=== PATIENT | female | born 1980 | race Caucasian/White ===

== ENCOUNTER 2024-05-21 08:26 | Day surgery (SDC) | payer BC, SELFPAY ==
[2024-05-21] VITALS (8 sets, daily range): BP systolic 80–114; BP diastolic 51–82; PULSE 81–94; RESP 14–22; TEMP 36.2–36.4; O2SAT 99–100; BMI 34.0
--- NOTE | 2024-05-21 | IMM_PTH ---
PATIENT: LYSSA ORTEGA LOC: [facility] [place][id number] AGE/SX: 44/F ROOM: RE05/21/[address]: Dr. Gabriel Iglesias MD : 1980 BED: DIS: 05/21/2024 SPEC #: [id number] RECD: 05/26/24 14:01 STATUS: KAROLINA REQ #: [id number] SUE: 05/21/24 00:[address]: Gabriel Iglesias DEPT: IMMUNOHISTOCHEMISTRY RECD BY: Mahendra Stein ENTERED: 05/26/24 14:05 SP TYPE: IMMUNO OTHR DR: Dr. Amish Barnes MD Tissues: B - Skin of buttock, NOS A - Skin of leg, NOS Procedures: CD31 (initial) CD31 (add) CD34 (add) KI-67 (add) FACTOR VIII (add) MELAN-A (add) S-100 (add) CD34 (initial) PHYSICIAN & INSTITUTION [place] [id number] SPECIMEN INFORMATION: Tissue Source: A- Biopsy of left thigh, B- Biopsy of left gluteal region Clinical Info: Dermatofibroma of buttock, pigmented skin lesion Specimen Number: [id number], B CPT code: 57956r9,19668s7 METHODOLOGY: Deparaffinized sections of prefer/formalin-fixed tissue or PAP/DQ stained slides are incubated with monoclonal/polyclonal antibodies/oligonucleotide probes. Localization is made via biotin free immunoperoxidase method. Appropriate controls are performed and reacted as expected. Results on target cell population are indicated in the following table: RESULTS: ANTIBODY / CLONE RESULT Block A 2 CD31 (DENISE/70A) negative Factor VIII (R Ag) negative CD34 (QBEnd-10) negative Melan A (A103) negative S-100 (4C4.9) negative Ki-67 (30-9) positive, low Block B 6 CD31 (DENISE/70A) negative Factor VIII (R Ag) negative CD34 (QBEnd-10) negative Ki-67 (30-9) positive, low These tests were developed and their performance characteristics determined by [facility]. They may not have been cleared or approved by the U.S. Food and Drug Administration. The FDA has determined that such clearance or approval is not necessary. The above immunohistochemical/dualISH markers are ordered and reviewed by the Pathologist. INTERPRETATION: A. Left thigh lesion, excision: Cellular hemosiderotic dermatofibroma. B. Left gluteal region, excision: Cellular dermatofibroma. PW/mr 06/10/2024
--- NOTE | 2024-05-21 08:43 | PCM.PRE.AN2 ---
ASA Classification* ASA Classification ASA Classification: 2 Assessment & Plan Anesthesia* Anesthesia Assessment Anesthesia Assessment: Discussed sedation and/or anesthesia options, risks, benefits, and alternatives with patient/parents/legal guardian/POA. Questions invited. The patient/parents/legal guardian/POA seems to understand and agrees to proceed with anesthesia plan. Reviewed the physical assessment, medical history, allergy history and patient home medications list prior to surgery/procedure/anesthetic and documented any changes. Performed airway and anesthesia risk assessments. Anesthesia Type Anesthesia Type: General Anesthesia Focused Assessment* Airway Assessment Mouth opens: >3 cm Mallampati Score: II Focused Labs Anesthesia Preop lab: CBC CHEMISTRY COAG Pre-Assessment Diagnosis/Proposed Procedure Planned Operative Procedure(s): EXCISION THIGH AND GLUTEAL LESIONS Anesthesia History Anesthesia History - field education coordinator: Anesthesia History - field education coordinator Hx Hospitalization No 05/19/24 12:14 Any Problems With Anesthesia Yes: N&V 05/19/24 12:14 Cholinesterase deficiency No 05/19/24 12:14 You/Your Family Experience No 05/19/24 12:14 fever (hyperthermia) with Relationship Recent Exposure to Contagious Disease Does patient have nerve No 05/19/24 12:14 stimulator Patient instructed to have device shut off --Does patient have Pacemaker or ICD? When Was Last Pacemaker Check QUESTION #4 FULL TEXT: You/Your Family Experience fever (hyperthermia) with Anesthesia Last Oral Intake Last Oral intake: Last Oral Intake NPO since Meds taken in AM with sips of water? Meds patient instructed to take am of surgery PONV PONV - field education coordinator: PONV - field education coordinator Female Yes 05/19/24 12:14 HX of Motion Sickness No 05/19/24 12:14 HX of N/V After Surgery Yes 05/19/24 12:14 Non-Smoker Yes 05/19/24 12:14 Duration of Surgery greater No 05/19/24 12:14 than 60 minutes Number of Risk Factors 3 05/19/24 12:14 PONV Score Moderate Risk 05/19/24 12:14 Height & Weight Height & Weight: Anesthesia: Height & Weight Height 5 ft 3 in 05/15/24 08:49 Respiratory Assessment Respiratory Assessment - field education coordinator: Respiratory Tract Infection Hx - field education coordinator Hx Respiratory Tract Infection No 05/19/24 12:14 STOP Sleep Apnea STOP Sleep Apnea - field education coordinator: STOP Sleep Apnea - field education coordinator Hx Hypertension No 05/19/24 12:14 Hx Sleep Apnea No 05/19/24 12:14 CPAP BIPAP Do you snore loudly (louder No 05/19/24 12:14 than talking or can be heard Do you often feel tired/ No 05/19/24 12:14 fatigued/ sleepy during daytime? Has anyone observed you stop No 05/19/24 12:14 breathing during sleep? STOP Results Negative 05/19/24 12:14 QUESTION #5 FULL TEXT : Do you snore loudly (louder than talking or can be heard through closed doors)? Tobacco Use History Tobacco Use History - field education coordinator: Tobacco Use History - field education coordinator Tobacco Use Smoking Status Never smoker 05/19/24 12:14 Hx Tobacco Use No 05/19/24 12:14 Years Smoking Packs Smoked per Day Smoking Cessation Date was within the last 15 years Hx Smoking Cessation Date Hx Smoking Cessation Counseling Hematologic Medial History Hematologic Hx - field education coordinator: Hematologic Medical Hx - admitting officer Hx of Blood Transfusion No 05/19/24 12:14 Hx of Transfusion in last 3 No 05/19/24 12:14 Months Date of Last Transfusion (if within last 3 months) Ever experience any problems No 05/19/24 12:14 with transfusion(s)? Specify any problems Hx of Preganancy in last 3 No 05/19/24 12:14 Months Nurse Filling Out Transfusion VCHRISTIN 05/19/24 12:14 & Questions: Date: 05/19/24 05/19/24 12:14 Time: 12:16 05/19/24 12:14 Patient unable to answer at this time (ie. confused, unrespo /Reproduction History /Reproductive History - field education coordinator: /Reproductive Hx- field education coordinator Hx Now No 05/19/24 12:14 Gestational Age (in weeks): EDC: Hx Hx Para Hx Section SAB No 05/19/24 12:14 Active Medications Active Medications: Current Medications Generic Name Dose Route Start Last Admin Trade Name Freq PRN Reason Stop Dose Admin Cefazolin Sodium 2 gm/ N/A 20 mls @ 400 mls/hr 05/21/24 09:55 IV 05/21/24 09:57 PREOP ONE Sodium Chloride 1,000 mls @ 15 mls/hr 05/21/24 08:45 IV 05/26/24 22:04 .Q48H [facility] Protocol PFSH Medical History Wears glasses Wears contact lenses Anxiety Fatty liver Skin cancer Diabetes Cancer Home Medications ?Medication ?Instructions ?Recorded ?Last Taken ?Type fluoxetine 40 mg capsule 40 mg PO QDAY 05/15/24 Unknown History metformin 1,000 mg tablet 1,000 mg PO BID 05/15/24 Unknown History tirzepatide 15 mg/0.5 mL 15 mg subcut QWEEK 05/15/24 05/09/24 History subcutaneous pen injector (Mounjaro) cetirizine 10 mg capsule (All Day 10 mg PO DAILY PRN allergy symptoms 05/19/24 Unknown History Allergy (cetirizine)) turmeric 400 mg capsule 400 mg PO 05/19/24 Unknown History Allergy/AdvReac Type Severity Reaction Status Date / Time No Known Allergies Allergy Verified 05/19/24 12:03 Family History Other Anxiety Breast cancer Diabetes Skin cancer Surgical History Hx of laparoscopy History of back surgery Hx of section History of cystoscopy Angiosarcoma Kidney stones Social History Smoking Status: Never smoker alcohol intake: never substance use type: does not use Review of Systems (Anesthesia) ROS Narrative System reviewed and no additional complaints, except as documented.
--- NOTE | 2024-05-21 08:53 | PCM.HP.STD ---
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 Patient reports that this has been there for months and has been growing. Dr. Suarez from [facility] dermatology excised part of the mass for biopsy, but referred her to me for resection of the residual tissue. Patient reports that it is painful and uncomfortable at times when she sits on it. She is concerned about this mass given her history of soft tissue tumors. She also has a spot on her lateral thigh that is dark and dimpled/depressed. This lesion was biopsied 10 years ago per patient report at an outside hospital and came back benign. She would like this examined as well. Patient is not a smoker. Patiently lost 65 pounds on Mounjaro (weekly injections for her diabetes, type II). She does not have a personal or family history of blood clots Her mother had breast cancer. The patient is up-to-date on her mammography and had one within a year. Caprini score is 4 for BMI Current Encounter (DATE OF SURGERY H&P UPDATE): I saw and examined the patient this morning in pre-operative holding. We discussed risks and benefits of today's surgery and they would like to proceed. NO CHANGE in health history since last seen and evaluated. Ready to proceed with surgery. [facility] Medical History Wears glasses Wears contact lenses Anxiety Fatty liver Skin cancer Diabetes Cancer Home Medications ?Medication ?Instructions ?Recorded ?Last Taken ?Type fluoxetine 40 mg capsule 40 mg PO QDAY 05/15/24 Unknown History metformin 1,000 mg tablet 1,000 mg PO BID 05/15/24 Unknown History tirzepatide 15 mg/0.5 mL 15 mg subcut QWEEK 05/15/24 05/09/24 History subcutaneous pen injector (Mounjaro) cetirizine 10 mg capsule (All Day 10 mg PO DAILY PRN allergy symptoms 05/19/24 Unknown History Allergy (cetirizine)) turmeric 400 mg capsule 400 mg PO 05/19/24 Unknown History Allergy/AdvReac Type Severity Reaction Status Date / Time No Known Allergies Allergy Verified 05/21/24 08:54 Family History Other Anxiety Breast cancer Diabetes Skin cancer Surgical History Hx of laparoscopy History of back surgery Hx of section History of cystoscopy Angiosarcoma Kidney stones Social History Smoking Status: Never smoker alcohol intake: never substance use type: does not use Physical Exam Narrative Female certified medical asst was present for my exam There is a 4 x 3 cm scar in the left buttock that appears fixed to the underlying subcutaneous tissue. There is also a dark 1 x 1 cm lesion on the left lateral thigh with uniform color and regular borders but the lesion is depressed/cratered. Assessment & Plan Assessment/Plan (1) Dermatofibroma of buttock: (2) Pigmented skin lesion: PLAN: Plan Both of these masses warrant an excision. Unclear what the pigmented skin lesion is, so should be removed and sent to pathology. There are dermatofibroma is causing her pain, she is an indication for excision in and of itself. I talked to her extensively about these masses, and discussed with Dr. Suarez as well. Pathology recommended conservative reexcision to ensure complete removal. I think this is appropriate as the margins were positive and, while these lesions are benign, they have a high recurrence rate and can rarely metastasize. I talked the patient extensively about the risks, benefits, and alternatives of removal of this. She would like to proceed. I talked the patient extensively about the risks of surgery, including bleeding, infection, damage to surrounding structures, surgical site dehiscence and wound formation, need for wound care, need for repeat operations, failure to obtain the desired result, DVT/PE, and the risks of anesthesia including . The benefits and alternatives of this surgery were also discussed. All of their questions were answered, and they agreed to proceed with surgery. Plan for sedation and local anesthesia right lateral decubitus position for excision of left thigh pigmented lesion and left gluteal dermatofibroma. INTERVAL H&P PLAN, DATE OF SURGERY: We will proceed with surgery today.
[2024-05-21 09:00] LABS: Internal QC Validated? YES +Cl - CLEAR BKGD; Pregnancy, Urine Negative Negative
[2024-05-21] MEDS: 0.9% Normal Saline (1000mL) 1,000 ML 15 ML IV (09:08)
[2024-05-21 09:31] LABS: Bedside Glucose 101 mg/dL (74-106)
--- NOTE | 2024-05-21 09:42 | OP.PCM_ITS ---
Operative Report (Standard) Operative Information Date of Procedure: 05/21/24 Pre-Operative Diagnosis: 1) Left buttock cellular dermatofibroma 2) Left thigh pigmented lesion Post-Operative Diagnosis: 1) Left buttock cellular dermatofibroma 2) Left thigh pigmented lesion Surgery/Procedure Performed: 1) Excision of left thigh pigmented lesion, 4.5 x 2.5 cm, CPT: 53206 2) Excisional biopsy of the left thigh lesion, 1 x 4 cm, CPT: 26157 3) Intermediate closure of wounds, 8.5 cm, CPT: 38994 endoscopy technician: Yes Granite Worker: Deon Moreno Tasks completed by certified dental assistant: Retracting Type of Anesthesia: MAC/Supplemental (20 cc of a 50/50 mixture of 0.25% marcaine with 1:200,000 epi and 1% lidocaine ) RN Documented Start/Stop Times: Operation Date: 05/21/24 09:55 Case Time Into Pre-Op 05/21/24 08:36 Anesthesia Start 05/21/24 09:39 Into Room 05/21/24 09:39 Procedure Start 05/21/24 09:58 Procedure End 05/21/24 10:19 Anesthesia End 05/21/24 10:29 Out of Room 05/21/24 10:29 Into Recovery 05/21/24 10:30 Procedure Start Time: 09:58 Procedure Stop Time: 10:19 Select all DRAINS/GRAFTS/IMPLANTS that apply: None Estimated Blood Loss: Minimal Specimen collected: Yes Description of specimen(s) removed: Dermatofibroma left buttock, looking for clear margins, and left thigh biopsy specimen . Both lesions/masses were marked with a silk stitch for short superior, long lateral, and were sent to pathology. Description of surgery: INDICATIONS: Patient has two lesions, one on buttock and one on thigh (both left side). They warrant excision. We discussed risks of infection, bleeding, damage to surrounding structures, return of the mass and need for repeat surgeries, healing problems/dehiscence of the wound and need for wound care, and risks from anesthesia. OPERATIVE DETAILS: The patient was correctly identified in holding, and I marked them (the two locations were confirmed, the patient agreed with the site markings). They were taken back to the procedure room where they were administered sedation and local for anesthesia and placed in the right lateral decubitus positioning. Once appropriate level of anesthesia was obtained, the site was prepped and draped in sterile fashion. A 15 blade scalpel was used to excise an ellipse around the buttock dermatofibroma and remove it completely full thickness to subcutaneous tissue, and dissection was carried out with tenotomy scissors around the mass/lesion and Bovie electrocautery. It was in the subcutaneous and skin layer deep to the skin (consistent with dermatofibroma). Dissection was carried out with tenotomy scissors around the mass and it was removed in in one piece. Hemostasis was obtained with Bovie electrocautery. The wound was irrigated with copious amounts of normal saline. It measured 4.5 x 2.5 centimeters. The mass was sent to pathology. The left thigh lesion was then completely excised in an ellipse with a 15 blade scalpel to subcutaneous tissue full thickness for an excisional biopsy and the wounds were irrigated. Both lesions/masses were marked with a silk stitch for short superior, long lateral, and were sent to pathology. Attention was then turned to intermediate closure of the wounds, which was 8.5 centimeters long. Deep sutures were placed with 3-0 PDS followed by 3-0 mono cryl deep dermal and then a running subcuticular suture 3-0 monocryl. Prineo was applied. The patient tolerated the procedure well and was taken to pacu in stable condition. POST-OPERATIVE PLAN: [ ] Surgical Findings: Lesions clinically completely excised Complications Complications: No Admit VTE Documentation VTE Mechan Device Prophylaxis: SCD's
[2024-05-21] MEDS: Cefazolin 2 GM in Syringe IV (09:47)
--- NOTE | 2024-05-21 09:55 | LES_PTH ---
PATIENT: LYSSA ORTEGA [place] [facility] [place][id number] AGE/SX: 44/F ROOM: RE05/21/[address]: Dr. Gabriel Iglesias MD : 1980 BED: DIS: 05/21/2024 SPEC #: [id number] RECD: 05/21/24 10:40 STATUS: KAROLINA AUGUSTO #: [id number] SUE: 05/21/24 09:[address]: Gabriel Iglesias DEPT: SURGICAL PATHOLOGY RECD BY: Krystina Valladares ENTERED: 05/21/24 11:25 SP TYPE: Lesion OTHR DR: Dr. Amish Barnes MD Tissues: A - Skin of leg, NOS B - Buttock, NOS Procedures: Surgery Specimen Level IV HEADER OPERATION: Excision thigh and gluteal lesions PRE-OP DIAGNOSIS: Dermatofibroma of buttock, pigmented skin lesion TISSUE SUBMITTED: A- Biopsy of left thigh lesion *short stitch- superior, long stitch- lateral, B- Biopsy left gluteal region * short suture - superior, long suture- lateral* MICROSCOPIC DIAGNOSIS A. Left thigh lesion: Cellular hemosiderotic dermatofibroma, incompletely excised. See comment. B. Left gluteal region, skin lesion: Cellular dermatofibroma, excised in the planes examined. See comment. PW/mr 05/26/2024 COMMENT A. The skin lesion shows a cellular proliferation similar to the dermatofibroma present in specimen B, but is heavily pigmented with numerous hemosiderin-laden macrophages. Immunohistochemistry ([id number]) supports the above diagnosis. Iron stain supports the above diagnosis with appropriate control material. This lesion is present at one of the lateral inked peripheral margins and re-excision is recommended to help prevent a recurrence. B. Previous pathology report of biopsy is obtained from providers office and is reviewed. The current specimen shows cellular dermatofibroma which is now widely excised with negative margins in all of the planes examined. Cicatrix is also noted likely from previous excision. Immunohistochemistry ([id number]) supports the above diagnosis. This case has been seen in consultation with [facility]. Please see outside report for details and additional immunohistochemistry findings. Case has been reviewed in consultation with Dr. Kellogg who concurs with the above diagnosis. IDC:[id number] MICROSCOPIC DESCRIPTION Slides are reviewed. GROSS DESCRIPTION A. Received in fixative is one container labeled with the patient's name and designated Left thigh lesion. The specimen consists of a starr-white skin ellipse measuring 2.5 x 1.0cm and up to 1.5cm in thickness. The specimen is oriented as follows: short stitch- superior, long stitch- lateral. The specimen is inked as follows: superior tip- yellow, inferior tip- green, lateral margin -black, medial margin -blue. The specimen is serially sectioned and submitted entirely in two cassettes. Cassette 1 contains the tips of the skin ellipse. 05/21/2024 B. Received in fixative is one container labeled with the patient's name and designated Left gluteal region. The specimen consists of a piece of starr-white skin ellipse measuring 4.5 x 3.0cm and up to 1.5cm in thickness. The specimen is oriented as follows: short stitch -superior, long stitch - lateral. The specimen is inked as follows: superior tip-yellow, inferior tip- green, lateral margin - blue, medial margin- black, deep margin -red. The entire specimen is submitted in ten cassettes. Cassette 1 contains the superior and inferior tips, cassette 2 contains the closest superior margin and cassette 10 contains the most inferior margin. Sections will be submitted after additional fixation. 05/22/2024 TC:5 CPT:41575u2
[2024-05-21] MEDS: Bupiv/Epi 0.25% 30 ML Vial (10:12)
[2024-05-21] MEDS: Lidocaine 1% /Epi 1:100 (20ml) 20 ML Vial (10:13)
--- NOTE | 2024-05-21 10:42 | PCM.POST.ANE ---
Anesthesia: Postop Eval I Current Vital Signs Temperature: 97.5 F Pulse Rate: 94 Blood Pressure: 99/62 Respiratory Rate: 22 Pulse Ox: 100 Oxygen Delivery Method: Room Air Assessment Airway patent: Yes Spontaneous unlabored respirations: Yes Mental status: Awake and Calm nausea: No Vomiting: No Anesthesia Complication: No Fluid Hydration Crystalloid volume administer (ml): 500 Total IV fluid infused: 500 Progress Note Anesthesia document: Postop Eval 1 completed: Yes
--- NOTE | 2024-05-21 12:59 | POSTOPAN2_ITS ---
Anesthesia Postop Eval I Sum Postop Eval Completion status Anesthesia document: Postop Eval 1 completed: Yes Anesthesia Postop Eval I Summary Anesthesia Postop Eval I Summary: Anesthesia Postop Eval I: Assessment Summary Airway patent Yes 05/21/24 10:43 CLINICAL [email or web address] Spontaneous unlabored Yes 05/21/24 10:43 CLINICAL [email or web address] respirations Mental status Awake,Calm 05/21/24 10:43 CLINICAL [email or web address] nausea No 05/21/24 10:43 CLINICAL [email or web address].[email or web address] Vomiting No 05/21/24 10:43 CLINICAL [email or web address].[email or web address] Anesthesia Postop Eval I: Fluid Summary Crystalloid volume administer 500 05/21/24 10:43 CLINICAL [email or web address] (ml) Colloids volume administered ( ml) Blood Product volume administered (ml) Total IV fluid infused 500 05/21/24 10:43 CLINICAL [email or web address].[email or web address] Anesthesia Postop Eval I: Summary Notes Anesthesia Complication No 05/21/24 10:43 CLINICAL [email or web address].[email or web address] Anesthesia Complication Comment: Post-operative progress note Anesthesia: Postop Eval II Evaluation Mental status: Awake Pain Level: 0 nausea: No Vomiting: No
--- NOTE | 2024-05-21 12:59 | PCM.POSTANE2 ---
Anesthesia Postop Eval I Sum Postop Eval Completion status Anesthesia document: Postop Eval 1 completed: Yes Anesthesia Postop Eval I Summary Anesthesia Postop Eval I Summary: Anesthesia Postop Eval I: Assessment Summary Airway patent Yes 05/21/24 10:43 PLANIMETER [email or web address] Spontaneous unlabored Yes 05/21/24 10:43 PLANIMETER OPERATOR.[email or web address] respirations Mental status Awake,Calm 05/21/24 10:43 PLANIMETER OPERATOR.[email or web address] nausea No 05/21/24 10:43 PLANIMETER OPERATOR.[email or web address] Vomiting No 05/21/24 10:43 PLANIMETER OPERATOR.[email or web address] Anesthesia Postop Eval I: Fluid Summary Crystalloid volume administer 500 05/21/24 10:43 PLANIMETER OPERATOR.[email or web address] (ml) Colloids volume administered ( ml) Blood Product volume administered (ml) Total IV fluid infused 500 05/21/24 10:43 PLANIMETER OPERATOR.[email or web address] Anesthesia Postop Eval I: Summary Notes Anesthesia Complication No 05/21/24 10:43 PLANIMETER OPERATOR.[email or web address] Anesthesia Complication Comment: Post-operative progress note Anesthesia: Postop Eval II Evaluation Mental status: Awake Pain Level: 0 nausea: No Vomiting: No
== END 2024-05-21 12:13 | disposition home or self-care (01) ==
LOC: SDC 08:26 → AC 08:28
PROVIDERS: Anesthesiology; PCP Family Medicine; Referring Provider Surgery Plastic and Reconstructive Surgery; Visit Provider Surgery Plastic and Reconstructive Surgery
PROC: (CPT 12034; principal; 2024-05-21 09:45)
DX: D23.5 Other benign neoplasm of skin of trunk (principal); E11.9 Type 2 diabetes mellitus without complications; Z80.8 Family history of malignant neoplasm of other organs or systems; Z79.84 Long term (current) use of oral hypoglycemic drugs; Z80.3 Family history of malignant neoplasm of breast; Z85.828 Personal history of other malignant neoplasm of skin
CPT/HCPCS: 12034; 11406; 00400; 81025; 82962; 88305; 88341; 88342; J2405

== ENCOUNTER 2024-06-18 12:29 | Day surgery (SDC) | payer BC, SELFPAY ==
[2024-06-18] VITALS (9 sets, daily range): BP systolic 91–101; BP diastolic 64–82; PULSE 74–90; RESP 16–18; TEMP 36.3–37; O2SAT 96–100; BMI 34.3
--- NOTE | 2024-06-18 12:36 | PRE.ANES_ITS ---
ASA Classification* ASA Classification ASA Classification: 2 Assessment & Plan Anesthesia* Anesthesia Assessment Anesthesia Assessment: Discussed sedation and/or anesthesia options, risks, benefits, and alternatives with patient/parents/legal guardian/POA. Questions invited. The patient/parents/legal guardian/POA seems to understand and agrees to proceed with anesthesia plan. Reviewed the physical assessment, medical history, allergy history and patient home medications list prior to surgery/procedure/anesthetic and documented any changes. Performed airway and anesthesia risk assessments. Anesthesia Type Anesthesia Type: MAC Anesthesia Focused Assessment* Airway Assessment Mouth opens: >3 cm Mallampati Score: II Focused Labs Anesthesia Preop lab: CBC CHEMISTRY POC Glucose 101 mg/dL (74-106) 05/21/24 08:53 05/21/24 COAG Urine Test Negative Negative 05/21/24 08:40 05/21/24 Pre-Assessment Diagnosis/Proposed Procedure Planned Operative Procedure(s): EXCISION OF LEFT THIGH DERMOFIBROMA Anesthesia History Anesthesia History - painter and grader cork: Anesthesia History - painter and grader cork Hx Hospitalization No 06/16/24 15:04 Any Problems With Anesthesia Yes: N&V/STATES DID WELL 06/16/24 15:04 WITH SURGERY 05/21/24 Cholinesterase deficiency No 06/16/24 15:04 You/Your Family Experience No 06/16/24 15:04 fever (hyperthermia) with Relationship Recent Exposure to Contagious No 05/21/24 08:57 Disease Does patient have nerve No 06/16/24 15:04 stimulator Patient instructed to have device shut off --Does patient have Pacemaker or ICD? When Was Last Pacemaker Check QUESTION #4 FULL TEXT: You/Your Family Experience fever (hyperthermia) with Anesthesia Last Oral Intake Last Oral intake: Last Oral Intake NPO since Meds taken in AM with sips of water? Meds patient instructed to take am of surgery PONV PONV - painter and grader cork: PONV - painter and grader cork Female Yes 06/16/24 15:04 HX of Motion Sickness No 06/16/24 15:04 HX of N/V After Surgery Yes 06/16/24 15:04 Non-Smoker Yes 06/16/24 15:04 Duration of Surgery greater No 06/16/24 15:04 than 60 minutes Number of Risk Factors 3 06/16/24 15:04 PONV Score Moderate Risk 06/16/24 15:04 Height & Weight Height & Weight: Anesthesia: Height & Weight Height 5 ft 3 in 05/30/24 08:23 Respiratory Assessment Respiratory Assessment - painter and grader cork: Respiratory Tract Infection Hx - painter and grader cork Hx Respiratory Tract Infection No 06/16/24 15:04 STOP Sleep Apnea STOP Sleep Apnea - painter and grader cork: STOP Sleep Apnea - painter and grader cork Hx Hypertension No 06/16/24 15:04 Hx Sleep Apnea No 06/16/24 15:04 CPAP BIPAP Do you snore loudly (louder No 06/16/24 15:04 than talking or can be heard Do you often feel tired/ No 06/16/24 15:04 fatigued/ sleepy during daytime? Has anyone observed you stop No 06/16/24 15:04 breathing during sleep? STOP Results Negative 06/16/24 15:04 QUESTION #5 FULL TEXT : Do you snore loudly (louder than talking or can be heard through closed doors)? Tobacco Use History Tobacco Use History - painter and grader cork: Tobacco Use History - painter and grader cork Tobacco Use Smoking Status Never smoker 06/16/24 15:04 Hx Tobacco Use No 06/16/24 15:04 Years Smoking Packs Smoked per Day Smoking Cessation Date was within the last 15 years Hx Smoking Cessation Date Hx Smoking Cessation Counseling Hematologic Medial History Hematologic Hx - painter and grader cork: Hematologic Medical Hx - crop and soil scientist Hx of Blood Transfusion No 06/16/24 15:04 Hx of Transfusion in last 3 No 06/16/24 15:04 Months Date of Last Transfusion (if within last 3 months) Ever experience any problems No 06/16/24 15:04 with transfusion(s)? Specify any problems Hx of Preganancy in last 3 No 06/16/24 15:04 Months Nurse Filling Out Transfusion DSCHRIBER 06/16/24 15:04 & Questions: Date: 06/16/24 06/16/24 15:04 Time: 15:05 06/16/24 15:04 Patient unable to answer at this time (ie. confused, unrespo /Reproduction History /Reproductive History - painter and grader cork: /Reproductive Hx- painter and grader cork Hx Now Gestational Age (in weeks): EDC: Hx Hx Para Hx Section SAB No 06/16/24 15:04 Active Medications Active Medications: Current Medications Generic Name Dose Route Start Last Admin Trade Name Freq PRN Reason Stop Dose Admin Cefazolin Sodium 2 gm/ N/A 20 mls @ 400 mls/hr 06/18/24 12:55 IV 06/18/24 12:57 PREOP [facility] Medical History Wears glasses Wears contact lenses Anxiety Fatty liver Dermatofibroma of buttock Skin cancer Diabetes Cancer Home Medications ?Medication ?Instructions ?Recorded ?Last Taken ?Type fluoxetine 40 mg capsule 40 mg PO QDAY 05/15/2405/19 History tirzepatide 15 mg/0.5 mL 15 mg subcut FR 05/15/2411/28 History subcutaneous pen injector (Mounjaro) cetirizine 10 mg capsule (All Day 10 mg PO DAILY PRN a llergy symptoms 05/19/24 05/19/24 History Allergy (cetirizine)) turmeric 400 mg capsule 400 mg PO DAILY 05/19/24 History Allergy/AdvReac Type Severity Reaction Status Date / Time No Known Allergies Allergy Verified 06/16/24 15:01 Family History Other Anxiety Breast cancer Diabetes Skin cancer Surgical History History of excision of lesion Hx of laparoscopy History of back surgery Hx of section History of cystoscopy Angiosarcoma Kidney stones Social History Smoking Status: Never smoker alcohol intake: never substance use type: does not use Review of Systems (Anesthesia) ROS Narrative System reviewed and no additional complaints, except as documented.
--- NOTE | 2024-06-18 13:01 | PCM.HP.STD ---
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 Patient reports that this has been there for months and has been growing. Dr. Suarez from [facility] dermatology excised part of the mass for biopsy, but referred her to me for resection of the residual tissue. Patient reports that it is painful and uncomfortable at times when she sits on it. She is concerned about this mass given her history of soft tissue tumors. She also has a spot on her lateral thigh that is dark and dimpled/depressed. This lesion was biopsied 10 years ago per patient report at an outside hospital and came back benign. She would like this examined as well. Patient is not a smoker. Patiently lost 65 pounds on Mounjaro (weekly injections for her diabetes, type II). She does not have a personal or family history of blood clots Her mother had breast cancer. The patient is up-to-date on her mammography and had one within a year. Caprini score is 4 for BMI Current Encounter (DATE OF SURGERY H&P UPDATE): I saw and examined the patient this morning in pre-operative holding. We discussed risks and benefits of today's surgery and they would like to proceed. NO CHANGE in health history since last seen and evaluated. Ready to proceed with surgery. 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 Lesion focally present at the lateral edge of the specimen and recommended reexcision Here for re-excision left thigh dermatofibroma [facility] Medical History Wears glasses Wears contact lenses Anxiety Fatty liver Dermatofibroma of buttock Skin cancer Diabetes Cancer Home Medications ?Medication ?Instructions ?Recorded ?Last Taken ?Type fluoxetine 40 mg capsule 40 mg PO QDAY 05/15/24 06/18/24 History tirzepatide 15 mg/0.5 mL 15 mg subcut FR 05/15/24 06/06/24 History subcutaneous pen injector (Mounjaro) cetirizine 10 mg capsule (All Day 10 mg PO DAILY PRN allergy symptoms 05/19/24 05/19/24 History Allergy (cetirizine)) turmeric 400 mg capsule 400 mg PO DAILY 05/19/24 05/19/24 History Allergy/AdvReac Type Severity Reaction Status Date / Time No Known Allergies Allergy Verified 06/18/24 12:52 Family History Other Anxiety Breast cancer Diabetes Skin cancer Surgical History History of excision of lesion Hx of laparoscopy History of back surgery Hx of section History of cystoscopy Angiosarcoma Kidney stones Social History Smoking Status: Never smoker alcohol intake: never substance use type: does not use Physical Exam Narrative Incisions c/d/i on left buttock and left thigh. No induration or drainage today. I marked the left thigh scar/planned area of incision with the patient and she was in agreement with the site marking Assessment & Plan Assessment/Plan (1) Dermatofibroma of left thigh: PLAN: Per pathology consult, the recommendation was conservative reexcision with clear margins as these occasionally get bigger/recur or even metastasize (rare but possible). I talked to the pathologist on the phone. Marginal control is the plan as it was with a left gluteal dermatofibroma. Plan for reexcision of the left thigh lesion under local and sedation in the operating room. We will send permanent sections. I talked to the patient about the risks, benefits, and alternatives to this procedure and she would like to proceed.
[2024-06-18 13:18] LABS: Internal QC Validated? YES +Cl - CLEAR BKGD; Pregnancy, Urine Negative Negative
[2024-06-18 13:19] LABS: Record Kit Lot#,Urine Preg 856586
[2024-06-18 13:23] LABS: Bedside Glucose 82 mg/dL (74-106)
[2024-06-18] MEDS: Cefazolin 2 GM in Syringe IV (13:50)
[2024-06-18] MEDS: Lidocaine 1% /Epi 1:100 (20ml) 20 ML Vial (14:00)
[2024-06-18] MEDS: Bupiv/Epi 0.25% 30 ML Vial (14:00)
--- NOTE | 2024-06-18 14:00 | MASS_PTH ---
PATIENT: LYSSA ORTEGA [place] [facility] [place][id number] AGE/SX: 44/F ROOM: RE06/18/[address]: Dr. Gabriel Iglesias MD : 1980 BED: DIS: 06/18/2024 SPEC #: [id number] RECD: 06/18/24 14:37 STATUS: KAROLINA REAriel #: [id number] SUE: 06/18/24 14:[address]: Gabriel Iglesias DEPT: SURGICAL PATHOLOGY RECD BY: Joel Vaughn ENTERED: 06/19/24 07:23 SP TYPE: Mass OTHR DR: Dr. Amish Barnes MD Tissues: Thigh, NOS Procedures: Surgery Specimen Level IV HEADER OPERATION: Excision of left thigh dermatofibroma PRE-OP DIAGNOSIS: Dermatofibroma of left thigh TISSUE SUBMITTED: Left thigh mass *short stitch - superior, long stitch - lateral* MICROSCOPIC DIAGNOSIS Left thigh mass, excision: Negative for residual dermatofibroma. Changes consistent with previous biopsy site. See comment. 06/23/2024 COMMENT Please make reference to previous specimen [id number] left thigh lesion with diagnosis of cellular hemosiderotic dermatofibroma, incompletely excised and left gluteal lesion, skin lesion with diagnosis of cellular dermatofibroma, excised in the planes examined. MICROSCOPIC DESCRIPTION Slides are reviewed. GROSS DESCRIPTION Received in fixative is one container labeled with the patient's name and designated Left thigh mass. The specimen consists of a starr-white skin ellipse measuring 5 x 1.2cm and up to 1cm in thickness. The specimen is inked as follows: superior tip- yellow, inferior tip- green, lateral margin- black, medial margin- blue. The specimen is serially sectioned and submitted entirely in five cassettes. Cassette 1 contains the superior and inferior tips. Sections will be submitted after additional fixation. 06/19/2024 TC:5 CPT:91429
--- NOTE | 2024-06-18 14:41 | PCM.POST.ANE ---
Anesthesia: Postop Eval I Current Vital Signs Temperature: 97.7 F Pulse Rate: 80 Blood Pressure: 95/77 Respiratory Rate: 18 Pulse Ox: 100 Assessment Airway patent: Yes Spontaneous unlabored respirations: Yes nausea: No Vomiting: No Anesthesia Complication: No Fluid Hydration Crystalloid volume administer (ml): 100 Total IV fluid infused: 100 Progress Note Anesthesia document: Postop Eval 1 completed: Yes
--- NOTE | 2024-06-18 15:54 | POSTOPAN2_ITS ---
Anesthesia Postop Eval I Sum Postop Eval Completion status Anesthesia document: Postop Eval 1 completed: Yes Anesthesia Postop Eval I Summary Anesthesia Postop Eval I Summary: Anesthesia Postop Eval I: Assessment Summary Airway patent Yes 06/18/24 14:41 PROPERTY MANAGEMENT INTERN.[email or web address] Spontaneous unlabored Yes 06/18/24 14:41 PROPERTY MANAGEMENT INTERN.JGEN respirations Mental status nausea No 06/18/24 14:41 PROPERTY MANAGEMENT INTERN.JGEN Vomiting No 06/18/24 14:41 PROPERTY MANAGEMENT INTERN.JGEN Anesthesia Postop Eval I: Fluid Summary Crystalloid volume administer 100 06/18/24 14:41 PROPERTY MANAGEMENT INTERN.JGEN (ml) Colloids volume administered ( ml) Blood Product volume administered (ml) Total IV fluid infused 100 06/18/24 14:41 PROPERTY MANAGEMENT INTERN.JGEN Anesthesia Postop Eval I: Summary Notes Anesthesia Complication No 06/18/24 14:41 PROPERTY MANAGEMENT INTERN.JGEN Anesthesia Complication Comment: Post-operative progress note Anesthesia: Postop Eval II Evaluation Mental status: Awake Pain Level: 0 nausea: No Vomiting: No
--- NOTE | 2024-06-18 15:54 | PCM.POSTANE2 ---
Anesthesia Postop Eval I Sum Postop Eval Completion status Anesthesia document: Postop Eval 1 completed: Yes Anesthesia Postop Eval I Summary Anesthesia Postop Eval I Summary: Anesthesia Postop Eval I: Assessment Summary Airway patent Yes 06/18/24 14:41 COMPUTER SPECIALIST.[email or web address] Spontaneous unlabored Yes 06/18/24 14:41 COMPUTER SPECIALIST.JGEN respirations Mental status nausea No 06/18/24 14:41 COMPUTER SPECIALIST.JGEN Vomiting No 06/18/24 14:41 COMPUTER SPECIALIST.JGEN Anesthesia Postop Eval I: Fluid Summary Crystalloid volume administer 100 06/18/24 14:41 COMPUTER SPECIALIST.JGEN (ml) Colloids volume administered ( ml) Blood Product volume administered (ml) Total IV fluid infused 100 06/18/24 14:41 COMPUTER SPECIALIST.JGEN Anesthesia Postop Eval I: Summary Notes Anesthesia Complication No 06/18/24 14:41 COMPUTER SPECIALIST.JGEN Anesthesia Complication Comment: Post-operative progress note Anesthesia: Postop Eval II Evaluation Mental status: Awake Pain Level: 0 nausea: No Vomiting: No
--- NOTE | 2024-06-19 13:38 | OP.PCM_ITS ---
Operative Report (Standard) Operative Information Date of Procedure: 06/18/24 Pre-Operative Diagnosis: Left thigh dermatofibroma cellular and hemosiderotic type Post-Operative Diagnosis: Left thigh dermatofibroma cellular and hemosiderotic type Surgery/Procedure Performed: 1) Excision of left thigh dermatofibroma, 4.2 x 1 cm (CPT:03784) 2) Intermediate closure of left thigh wound, 4.2 cm (CPT:60249) raise driller: No Type of Anesthesia: MAC/Supplemental (20 cc of a 50/50 mixture of 1% lidocaine with 1:200,000 epinephrine and 0.25% Marcaine ) RN Documented Start/Stop Times: Operation Date: 06/18/24 14:00 Case Time Into Pre-Op 06/18/24 12:32 Out of Pre-Op 06/18/24 13:43 Anesthesia Start 06/18/24 13:45 Into Room 06/18/24 13:45 Procedure Start 06/18/24 14:02 Procedure End 06/18/24 14:18 Anesthesia End 06/18/24 14:25 Out of Room 06/18/24 14:25 Into Recovery 06/18/24 14:27 Out of Recovery 06/18/24 15:06 Into Phase II Recovery 06/18/24 15:07 Out of Phase II 06/18/24 15:47 Procedure Start Time: 14:02 Procedure Stop Time: 14:18 Select all DRAINS/GRAFTS/IMPLANTS that apply: None Estimated Blood Loss: 10 cc Specimen collected: Yes Description of specimen(s) removed: Left thigh lesion . It was marked short superior long lateral with a silk stitch Description of surgery: INDICATIONS: Patient has a history of a left thigh cellular dermatofibroma to which pathology recommended conservative reexcision for complete margins. We discussed risks of infection, bleeding, damage to surrounding structures, ret urn of the mass and need for repeat surgeries, healing problems/dehiscence of the wound and need for wound care, and risks from anesthesia. Patient elected to proceed with surgery. OPERATIVE DETAILS: The patient was correctly identified in holding, and I marked them (the site on the left thigh was confirmed, the patient agreed with the site marking of this left thigh scar for excision). They were taken back to the procedure room where they were administered sedation and local for anesthesia and placed in the supine positioning. Once appropriate level of anesthesia was obtained, the site was prepped and draped in sterile fashion. A 15 blade scalpel was used to make a direct incision over the mass, and dissection was carried out with tenotomy scissors around the mass/lesion and Bovie electrocautery. It was in the subcutaneous and skin layer. Dissection was carried out with tenotomy scissors around the mass and it was removed in 1 piece. Hemostasis was obtained with Bovie electrocautery. The wound was irrigated with copious amounts of normal saline. It measured 4.2 x 1 centimeters. The mass was sent to pathology. Attention was then turned to intermediate closure of the wound, which was 4.2 centimeters long. Deep sutures were placed with 2-0 and 3-0 PDS deep fascial and deep dermal sutures followed by running subcuticular 3-0 Monocryl suture and Prineo tape. The patient tolerated the procedure well. POST-OPERATIVE PLAN: Follow-up in 1 week for wound check and to check margins/pathology report Surgical Findings: Left thigh scar (dermatofibroma with positive margins) clinically was completely excised to the level of the subcutaneous tissues Complications Complications: No Admit VTE Documentation VTE Present on Admission: No VTE Mechan Device Prophylaxis: SCD's
== END 2024-06-18 15:47 | disposition home or self-care (01) ==
LOC: SDC 12:30 → AC 12:36
PROVIDERS: Anesthesiology; PCP Family Medicine; Referring Provider Surgery Plastic and Reconstructive Surgery; Visit Provider Surgery Plastic and Reconstructive Surgery
PROC: (CPT 11406; principal; 2024-06-18 13:45)
DX: D23.72 Other benign neoplasm of skin of left lower limb, including hip (principal); E11.9 Type 2 diabetes mellitus without complications; Z79.85 Long-term (current) use of injectable non-insulin antidiabetic drugs; F32.A Depression, unspecified; Z85.828 Personal history of other malignant neoplasm of skin
CPT/HCPCS: 11406; 12032; 00400; 81025; 82962; 88305; A4216